=== PATIENT | female | born 1985 | race Caucasian/White ===

== ENCOUNTER → 2017-08-09 | Outpatient (CLI) | payer OTHER | LOC: MC.RAD 09:30 | DX: N64.59 Other signs and symptoms in breast (principal) ==

== ENCOUNTER → 2020-07-27 | Outpatient (CLI) | payer OTHER | LOC: COL.RAD 08:33 | DX: H53.9 Unspecified visual disturbance (principal); R42 Dizziness and giddiness | CPT/HCPCS: A9585 ==

== ENCOUNTER → 2021-07-24 | Outpatient (CLI) | payer OTHER | LOC: COL.PUL 06-15 11:30 | DX: R06.2 Wheezing (principal); F17.200 Nicotine dependence, unspecified, uncomplicated ==

== ENCOUNTER → 2024-01-08 | Outpatient (CLI) | payer BC ==
[2004-09-14 08:02] VITALS: BP 119/62; PULSE 90; TEMP 97.5
== END ==
LOC: MC.RAD 09:40
DX: Z12.31 Encounter for screening mammogram for malignant neoplasm of breast (principal)

== ENCOUNTER → 2024-01-27 | Outpatient (CLI) | payer BC ==
[2004-09-14 08:02] VITALS: PULSE 90; TEMP 97.5
[~2024-01-27] MED LIST: CARDIZEM CD 12120 MG PO; CELEBREX 200MG200 MG PO; CONTRAVE1 TER PO; DUPIXENT P300 MG/2 M SQ; FIORICET 325 MG1 TA1 PO; Gadoterate 15 ML VIAL IV ONE; LINZESS290CAP PO; MIRALAX PA17 GM/Dose PO; MIRENA52 MG IY; MUCINEX DM 30 M1 TE1; PRIL40 PO; PROAIR HFA0.09 MG/AC IH; SINGULAIR 110 MG/TAB PO; TRELEGY ELLIPT1 EAC1 IH; VALTREX1 GM PO; ZYRTEC 10MG10 MG PO
== END ==
LOC: COL.RAD 08:46
DX: M89.38 Hypertrophy of bone, other site (principal); G44.221 Chronic tension-type headache, intractable
CPT/HCPCS: A9575

== ENCOUNTER → 2024-02-07 | Outpatient (CLI) | payer BC ==
[~2024-02-07] VITALS: Ht 165.1 cm; Wt 72.6 kg
[~2024-02-07] MED LIST changes: -Gadoterate 15 ML VIAL IV ONE
[2024-02-07 09:41] VITALS: BP 124/83; PULSE 76; TEMP 98.5
[2024-02-07 10:25] VITALS: BP 130/82; PULSE 83
== END ==
LOC: COL.RAD 09:11
DX: M48.02 Spinal stenosis, cervical region (principal); G44.221 Chronic tension-type headache, intractable
CPT/HCPCS: J1100